=== PATIENT | male | born 1960 | race Caucasian/White ===

== ENCOUNTER 2023-06-14 22:25 | Emergency (ER) | payer BC ==
[2023-06-14 22:54] VITALS: BP 147/72; PULSE 64
[2023-06-14] MEDS ORDERED: Bacitracin Oint 1 GM U/D Packet TOP ONE (23:24)
[2023-06-14] MEDS ORDERED: Diphtheria,Pertussis(Acell),Tetanus Vaccine 0.5 ML Syringe IM ONE (23:24)
== END 2023-06-14 23:43 | disposition home or self-care (01) ==
LOC: JP.ED 22:25
DX: S51.811A Laceration without foreign body of right forearm, initial encounter (principal); W22.8XXA Striking against or struck by other objects, initial encounter
CPT/HCPCS: 12002; 90471; 90715; 99282; 99282-25